=== PATIENT | female | born 1970 | race Caucasian/White ===

== ENCOUNTER 2023-12-27 14:12 | Observation (INO) ==
[2023-12-27 15:05] LABS: Basophils # (auto) 0.03 K/uL (0.00-0.20); Basophils % (auto) 0.3 %; Hematocrit (blood only) 41.6 % (37.0-47.0); Hemoglobin 13.7 g/dl (12.0-16.0); Immature Granulocytes # (auto) 0.04 K/uL (0.01-0.20); Immature Granulocytes % (auto) 0.4 %; Lymphocytes % (auto) 8.7 %; Mean Corpuscular Hemoglobin 29.7 pg (25.0-34.0); Mean Corpuscular Hgb Conc 32.9 g/dL (32.0-36.0); Mean Corpuscular Volume 90.2 fL (80.0-100.0); Mean Platelet Volume 9.6 fL (9.4-12.4); Monocytes # (auto) 0.16 K/uL (0.11-0.59); Monocytes % (auto) 1.5 %; Neutrophils # (auto) 9.21 K/uL (1.40-6.50); Neutrophils % (auto) 89.1 %; Platelet Count 345 K/uL (130-400); RDW Standard Deviation 46.3 fL (36.4-46.3); Red Blood Count 4.61 M/uL (4.20-5.40); White Blood Count 10.34 K/ul (4.8-10.8)
--- NOTE | 2023-12-27 15:42 | Emergency Department Note ---
History of Present Illness General Chief complaint: Hip Pain Stated complaint: PAIN, BULDGING DISK Time Seen by Provider: 12/27/23 15:40 History of Present Illness Maximum Pain Intensity: 10 NAME: MEHRDAD DAVIS AGE: 53 SEX: F : 1970 ARRIVES VIA: Walk-In INFORMANT: Patient ED PROVIDER(S): JEANNINE Leslie, Harry Clark DO The patient is a 53-year-old female who arrives to the emergency department for evaluation of left lumbar pain as well as lumbar spinous process pain. She reports she was here on Tuesday night, and diagnosed with a herniated disc with sciatica. She states the pain has worsened since discharge, and she currently has left leg numbness, and weakness. She reports she was prescribed Robaxin, prednisone and has been taking naproxen and Tylenol which none have alleviated the pain. The patient denies any numbness or tingling in her groin, loss of bowel or bladder. She is tearful upon examination. Home Medications Medication Instructions Recorded Confirmed Type naproxen 500 mg tablet 500 mg PO BID PRN pain #20 tabs 12/25/23 12/27/23 Rx duloxetine 60 mg capsule,delayed 60 mg PO DAILY 12/27/23 12/27/23 History release levothyroxine 75 mcg tablet 75 mcg PO DAILYBB 12/27/23 12/27/23 History methocarbamol 750 mg tablet 750 mg PO TID 12/27/23 12/27/23 History Past Med/Surg History Medical History Depression Hypothyroidism Social History Smoking Status: Never smoker Preferred Language: Italian Feels Safe at Home: Yes Physical Exam Vital Signs Vital Signs - 24 hr 12/27/23 14:14 12/27/23 16:32 12/27/23 17:41 Temperature 36.2 C L Temperature Source Temporal Artery Scan Pulse Rate 123 H 85 Pulse Rate [Apical] 84 Respiratory Rate 18 18 Respiratory Effort / Characteristics Non-Labored Spontaneous Non-Labored Spontaneous Respiratory Depth Normal Normal Respiratory Pattern Regular Blood Pressure 169/110 H Blood Pressure [Right Arm] 146/88 H Blood Pressure Mean 129 Blood Pressure Mean [Right Arm] 107 Blood Pressure Position Sitting Blood Pressure Position [Right Arm] Pulse Oximetry 95 96 Oxygen Delivery Method Room Air Room Air Sepsis Recent Fever Within 48 Hours No Sepsis New/Unexplained Change in Mental Status No Sepsis Action Taken by Nursing No Action Required 12/27/23 18:24 12/27/23 20:00 12/27/23 20:23 Temperature Temperature Source Pulse Rate 80 Pulse Rate [Apical] 82 86 Respiratory Rate 18 18 Respiratory Effort / Characteristics Non-Labored Spontaneous Non-Labored Spontaneous Respiratory Depth Normal Normal Respiratory Pattern Regular Regular Blood Pressure Blood Pressure [Right Arm] 147/93 H 141/91 H Blood Pressure Mean Blood Pressure Mean [Right Arm] 111 107 Blood Pressure Position Blood Pressure Position [Right Arm] Lying Lying Pulse Oximetry 94 96 Oxygen Delivery Method Room Air Room Air Sepsis Recent Fever Within 48 Hours Sepsis New/Unexplained Change in Mental Status Sepsis Action Taken by Nursing VITALS: Vitals are noted on the nurse's note and reviewed by myself. Vital signs stable. GENERAL: 53-year-old female, in no acute distress, nondiaphoretic, well- developed well-nourished. SKIN: The skin was without rashes, erythema, edema, or bruising. HEAD: Normocephalic atraumatic. HEART: Regular rate and rhythm without murmurs gallops or rubs. LUNGS: Clear to auscultation bilaterally without wheezes, rales or rhonchi. No retractions or accessory muscle use. MUSCULOSKELETAL: Tenderness to palpation lumbar spinous process, lumbar paraspinal muscles, left lower extremity strength 4/5, right lower extremity strength 5/5, positive left straight leg raise. Distal pulses present. NEURO: Patient was alert and oriented to person place and time. No focal neurological deficits. Course Administered Medications Miscellaneous (Remove Lidoderm Patch) 1 each N/A DAILY@2100 APRIL Stop: 01/26/24 20:59 Last Admin: 12/27/23 20:06 Dose: 1 each Documented By: RODRICK Discontinued Medications Acetaminophen (Acetaminophen 500 Mg Tab) 1,000 mg PO NOW STA Stop: 12/27/23 15:57 Last Admin: 12/27/23 16:10 Dose: 1,000 mg Documented By: MYRA Cyclobenzaprine HCl (Cyclobenzaprine Hcl 10 Mg Tab) 10 mg PO NOW STA Stop: 12/27/23 15:57 Last Admin: 12/27/23 16:10 Dose: 10 mg Documented By: MYRA Dexamethasone Sodium Phosphate (DexamethasonePf 10 Mg/Ml Vial) 10 mg IV NOW ONE Stop: 12/27/23 15:57 Last Admin: 12/27/23 16:10 Dose: 10 mg Documented By: MYRA Gadobutrol (Gadobutrol 65ml Vial) 8.3 ml IV ONCE ONE Stop: 12/27/23 17:58 Last Admin: 12/27/23 17:57 Dose: 8.3 ml Documented By: СВЕТЛАНА Ketorolac Tromethamine (Ketorolac Tromethamine 15 Mg/Ml Vial) 15 mg IV NOW ONE Stop: 12/27/23 15:57 Last Admin: 12/27/23 16:10 Dose: 15 mg Documented By: MYRA Lidocaine (Lidocaine 5% 1 Patch) 1 patch TD NOW STA Stop: 12/27/23 15:57 Last Admin: 12/27/23 16:11 Dose: 1 patch Documented By: MYRA Oxycodone HCl (Oxycodone Hcl Ir 5 Mg Tab (Immediate Release)) 5 mg PO NOW STA Stop: 12/27/23 16:56 Last Admin: 12/27/23 17:03 Dose: 5 mg Documented By: DARLIN Oxycodone HCl (Oxycodone Hcl Ir 5 Mg Tab (Immediate Release)) 5 mg PO NOW STA Stop: 12/27/23 19:28 Last Admin: 12/27/23 19:31 Dose: 5 mg Documented By: RODRICK Medical Decision Making Differential Diagnosis Musculoskeletal, disc herniation, fracture, metastatic disease, cord compression, discitis, sciatica, cauda equina, infection, aortic disease, renal colic, gastrointestinal, as well as other pathologies. Medical Records Attestation: I reviewed the patient's medical records. Home Medications Current Medication List: was personally reviewed by me Laboratory Data Attestation: I reviewed the patient's lab results. No leukocytosis, stable hemoglobin and hematocrit, no electrolyte abnormalities. 12/27/23 14:45 12/27/23 14:45 Lab Results 12/27/23 Range/Units 14:45 WBC 10.34 (4.8-10.8) K/ul RBC 4.61 (4.20-5.40) M/uL Hgb 13.7 (12.0-16.0) g/dl Hct 41.6 (37.0-47.0) % MCV 90.2 (80.0-100.0) fL MCH 29.7 (25.0-34.0) pg MCHC 32.9 (32.0-36.0) g/dL RDW Std Deviation 46.3 (36.4-46.3) fL RDW Coeff of Mark 14.0 (11.5-14.5) % Plt Count 345 (130-400) K/uL MPV 9.6 (9.4-12.4) fL Immature Gran % (Auto) 0.4 % Neut % (Auto) 89.1 % Lymph % (Auto) 8.7 % [place] % (Auto) 1.5 % Eos % (Auto) 0.0 % Baso % (Auto) 0.3 % Neut # (Auto) 9.21 H (1.40-6.50) K/uL Lymph # (Auto) 0.90 L (1.20-3.40) K/uL [place] # (Auto) 0.16 (0.11-0.59) K/uL Eos # (Auto) 0.00 (0.00-0.50) K/uL Baso # (Auto) 0.03 (0.00-0.20) K/uL Immature Gran # (Auto) 0.04 (0.01-0.20) K/uL Sodium 139 (136-145) mmol/L Potassium 3.5 D (3.5-5.1) mmol/L Chloride 104 (98-107) mmol/L Carbon Dioxide 27 (21-32) mmol/L Anion Gap 8 (3-11) BUN 17 (6-23) mg/dl Creatinine 0.80 (0.6-1.2) mg/dl Est Cr Clr Drug Dosing 90.0 ml/min Est GFR ( Amer) 96.2 ml/min Est GFR (Non-Af Amer) 83.0 ml/min BUN/Creatinine Ratio 21.3 H (10-20) Glucose 115 H (70-99(Fasting)) mg/dl Calcium 9.4 (8.6-10.3) mg/dl Magnesium 2.1 (1.7-2.4) mg/dl Total Bilirubin 0.5 (0.2-1.0) mg/dl AST 16 (13-39) U/L ALT 15 (7-52) U/L Alkaline Phosphatase 57 (34-104) U/L Total Protein 7.4 (6.0-8.3) gm/dl Albumin 4.4 (3.4-5.0) gm/dl Globulin 3.0 (2.5-4.0) gm/dl Albumin/Globulin Ratio 1.5 (0.9-2) Imaging Data Radiologist's Impression: Lumbar Spine MRI 12/27/23 15:49 LUMBAR SPINE MRI WITH AND WITHOUT CONTRAST HISTORY: numbness left lower extremity. Back pain. TECHNIQUE: Multiplanar multisequence MRI of the lumbar spine was performed both before and after the intravenous administration of contrast. COMPARISON: Lumbar spine CT 12/25/2023. FINDINGS: For the purpose of the report the L5-S1 disc space will be located on axial image . No fracture or subluxation within the lumbar spine. The visualized sacrum is intact. There is mild disc space narrowing at L2-L3, L4-5, L5-S1. Mild disc space narrowing also seen at T10-11 and T11-T12. There is 4 mm of anterolisthesis of L4 on L5, unchanged. The conus terminates at the L1 level. Lumbar subcutaneous edema is noted. Pbpn-pt-[id number] facet degenerative changes most pronounced at the L4-5 level. Small broad-based posterior disc bulge T11- T12 without significant central canal or neural foraminal narrowing. Paravertebral soft tissues are unremarkable. Minimal anterior wedging at T11 and is likely chronic. No epidural fluid collections or masses. L1-L2: No significant central canal or neural foraminal narrowing. L2-L3: Small broad-based posterior disc bulge without significant central canal narrowing. There is mild bilateral neural foraminal narrowing. L3-L4: No significant central canal or neural foraminal narrowing. L4-L5: No significant central canal or left-sided neural foraminal narrowing. There is moderate right-sided neural foraminal narrowing due to the spondylolisthesis and facet hypertrophy. L5-S1: There is a left foraminal focal disc protrusion measuring approximately 13 x 5 mm. This abuts the exiting left L5 nerve root. There is mild enhancement adjacent to this disc protrusion which is likely reactive. No significant central canal or right-sided neural foraminal narrowing. There is moderate left- sided neural foraminal narrowing due to the disc protrusion. IMPRESSION: 1. A 13 x 5 mm left foraminal focal disc protrusion at L5-S1 which abuts the exiting left L5 nerve root. 2. No fracture or subluxation within the lumbar spine. 3. Grade 1 anterolisthesis of L4 on L5. 4. [id number]-[id number] facet degenerative changes most pronounced at the L4-5 level. ACT 112: Negative or not required by law. Electronically signed by: Fercho Boogie M.D. 12/27/2023 7:21 PM ECG Data Attestation: I personally reviewed and interpreted this ECG as follows: Indication: + other Rate (beats per minute): 122 Rhythm: + sinus tachycardia ECG [place]: + Normal ECG ST segments: + Normal ST segments Comparison ECG Date: no prior available Blood Pressure Blood Pressure Findings: Elevated blood pressure Blood Pressure Disposition: elevated BP felt to be situational MDM Narrative The patient is a 53-year-old female who arrives to the emergency department for the above-stated complaint. Upon examination the patient is obviously uncomfortable. She was evaluated in triage 3 initially prior to being moved to room a 12 B. During assessment the patient had slight weakness of the left lower extremity 4/5 in comparison to right which was 5/5. Straight leg raise did elicit significant pain in the left posterior lumbar region. Based on the patient's new onset weakness, as well as numbness and tingling of the left lower extremity I did feel it necessary to order a lumbar MRI. The patient was also provided with an oral dose of oxycodone, IM Toradol, IM dexamethasone, oral Tylenol, and a topical Lidoderm patch for comfort. The patient did require repeat oxycodone administration to assist with pain relief. Upon reassessment I was able to provide the patient with the MRI results, the patient does have a 13 x 5 mm left foraminal focal disc protrusion at L5-S1 which abuts the exiting left L5 nerve root. This is consistent with the patient's symptoms and severe pain. I spoke with Dr. Almaguer from orthopedic spine who agreed the patient's pain should be under control until she is able to be evaluated outpatient. I informed him the patient is not local, and would require narcotics for pain control, however she needs to drive 11 hours to return home for follow-up. At that time he and I discussed the need for patient admission overnight for pain control with follow-up evaluation from him in the morning. He does recommend a transverse foraminal injection for pain control at this time. I spoke with the patient regarding these options, she was agreeable to being admitted at this time. Case management was contacted to facilitate admission. Dr. Joanne Aceves from the [facility] hospitalist group will take over care of the patient at this time. Impression & Plan Protrusion of intervertebral disc of lumbosacral region, Intractable back pain Discharge Plan Visit Data Chief Complaint: Hip Pain Stated Complaint: PAIN, BULDGING DISK ED Provider: Harry Clark ED Midlevel Provider: Riddhi Rubi Discharge Problem: Protrusion of intervertebral disc of lumbosacral region, Intractable back pain Forms Stand Alone Forms: My [facility] Prescriptions Prescriptions: No Action naproxen 500 mg tablet 500 mg PO BID PRN (Reason: pain) Qty: 20 0RF levothyroxine 75 mcg tablet 75 mcg PO DAILYBB methocarbamol 750 mg tablet 750 mg PO TID Rx Instructions: ordered 12/22/23 take for 7 days duloxetine 60 mg capsule,delayed release(DR/EC) 60 mg PO DAILY Referrals Referrals: PCP,NO [Primary Care Provider] -
[2023-12-27 15:44] LABS: Albumin Globulin Ratio 1.5 (0.9-2); Albumin Level 4.4 gm/dl (3.4-5.0); BUN Creatinine Ratio 21.3 (10-20); Bilirubin,Total 0.5 mg/dl (0.2-1.0); Calcium 9.4 mg/dl (8.6-10.3); Est GFR (African American) 96.2 ml/min; Potassium 3.5 mmol/L (3.5-5.1); Total Protein 7.4 gm/dl (6.0-8.3)
[2023-12-27] MEDS: ACETAMINOPHEN 500 MG TAB PO STA (16:10)
[2023-12-27] MEDS: dexAMETHasone**PF** 10 MG/ML VIAL IV ONE (16:10)
[2023-12-27] MEDS: KETOROLAC TROMETHAMINE 15 MG/ML VIAL IV ONE ×2 (16:10→23:58)
[2023-12-27] MEDS: CYCLOBENZAPRINE HCL 10 MG TAB PO STA (16:10)
[2023-12-27] MEDS: LIDOCAINE 5% 1 PATCH TD STA (16:11)
[2023-12-27] MEDS: oxyCODONE HCL IR 5 MG TAB (IMMEDIATE RELEASE) PO STA ×2 (17:03→19:31)
[2023-12-27] MEDS: GADOBUTROL 65ML VIAL IV ONE (17:57)
--- NOTE | 2023-12-27 19:22 | Magnetic Resonance Report ---
LUMBAR SPINE MRI WITH AND WITHOUT CONTRAST HISTORY: numbness left lower extremity. Back pain. TECHNIQUE: Multiplanar multisequence MRI of the lumbar spine was performed both before and after the intravenous administration of contrast. COMPARISON: Lumbar spine CT 12/25/2023. FINDINGS: For the purpose of the report the L5-S1 disc space will be located on axial image 24 of 25. No fracture or subluxation within the lumbar spine. The visualized sacrum is intact. There is mild di sc space narrowing at L2-L3, L4-5, L5-S1. Mild disc space narrowing also seen at T10-11 and T11-T12. There is 4 mm of anterolisthesis of L4 on L5, unchanged. The conus terminates at the L1 level. Lumbar subcutaneous edema is noted. Gswy-pk-smoedzfn facet degenerative changes most pronounced at the L4-5 level. Small broad-based posterior disc bulge T11-T12 without significant central canal or neural fo raminal narrowing. Paravertebral soft tissues are unremarkable. Minimal anterior wedging at T11 and i s likely chronic. No epidural fluid collections or masses. L1-L2: No significant central canal or neural foraminal narrowing. L2-L3: Small broad-based posterior disc bulge without significant central canal narrowing. There is m ild bilateral neural foraminal narrowing. L3-L4: No significant central canal or neural foraminal narrowing. L4-L5: No significant central canal or left-sided neural foraminal narrowing. There is moderate right -sided neural foraminal narrowing due to the spondylolisthesis and facet hypertrophy. L5-S1: There is a left foraminal focal disc protrusion measuring approximately 13 x 5 mm. This abuts the exiting left L5 nerve root. There is mild enhancement adjacent to this disc protrusion which is l ikely reactive. No significant central canal or right-sided neural foraminal narrowing. There is mode rate left-sided neural foraminal narrowing due to the disc protrusion. IMPRESSION: 1. A 13 x 5 mm left foraminal focal disc protrusion at L5-S1 which abuts the exiting left L5 nerve ro ot. 2. No fracture or subluxation within the lumbar spine. 3. Grade 1 anterolisthesis of L4 on L5. 4. Hihb-[id number]-mltpgbun facet degenerative changes most pronounced at the L4-5 level. ACT 112: Negative or not required by law. Electronically signed by: Fercho Boogie M.D. 12/27/2023 7:21 PM
--- NOTE | 2023-12-27 20:20 | History & Physical Report ---
Date of Service December 27, 2023 Assessment & Plan (1) Lumbar radiculopathy: Plan: Worsening, intractable LBP with pain radiation down her left leg x 2 weeks Patient reports she was helping a friend move/lift boxes when she exacerbated her back pain Lumbar spine MRI on arrival revealed a 13 x 5 mm left foraminal focal disc protrusion at L5-S1; no fracture or subluxation ED reach out to Dr. Almaguer, who reported that the patient will likely need a back injection Given the patient is not local and would need to drive 11 hours to return home, she was amenable to being admitted for pain control Multimodal pain regimen as follows: Acetaminophen as needed for pain 13 Oxycodone 5-10 mg p.o. q6h as needed for breakthrough pain Prednisone 40 mg p.o. QAM Methocarbamol 750 mg p.o. TID Lidocaine 5% patch application/removal to the lower back daily Ice application to lower back (patient reports this has been helping a lot) Reclined position/limit movement Orthospine surgery consulted Hold off on PT/OT consult pending orthospine eval A.m. CBC, BMP (2) Constipation: Plan: Secondary to opioid use MiraLAX as needed (3) Hypothyroidism: Plan: Continue levothyroxine (4) Depression: Plan: Continue duloxetine Plan Disposition: Admit to [facility] Full code Regular diet VTE PPx: Lovenox 40 mg SQ q24h History of Present Illness Chief Complaint: Left lower back/hip pain Primary Care Provider: NO PCP Marilee is a pleasant 53-year-old female with PMH of hypothyroidism, depression, and lumbar radiculopathy. Patient presented for worsening, intractable left hip pain radiating down the left leg that began after she was lifting boxes and helping a friend move on December 16. Pain is located at the left lower back/sacrum and radiates down her left leg. She rates it 8/10 after receiving pain medication in the ED. worse with movements. She was seen at the ED on 12/24, and was previously discharged on methocarbamol 750 mg 3 times daily as well as naproxen/Tylenol rotation. She reports that this did not alleviate her pain, and that her pain has been constant since. She does note that ice pads do help with the pain, as well as lying in a reclined position. Last BM on 12/26 at 1330. No saddle anesthesia or change in bowel/urinary habits. Patient reports she has been slightly constipated from pain medication. Prior injuries to the back include a recent fall around a month ago while wearing flip-flops; tripped. She also notes she had a deep tissue massage of the lower back around Margarita time and is unsure if this contributed. Patient lives in [place], [place], but is currently in the area caring for her 87-year-old mother with CHF. She reports she has not been taking her regular medications, which include duloxetine and levothyroxine. Patient is mildly hypertensive at 141/91 at time of admission; vitals otherwise stable. ED course: Lidocaine 5% patch Acetaminophen 1000 mg IV Cyclobenzaprine 10 mg Toradol 15mg Dexamethasone 10 mg Oxycodone 5 mg p.o. x 2 ROS: Patient endorses left lower back pain radiating fully down the left leg, numbness and tingling in the left leg, and constipation. Patient denies fever, chills, night sweats, dizziness or lightheadedness, headaches, chest pain, SOB, abdominal pain, N/V/D, change in bowel habits, blood in her urine or stool, burning with urination, or saddle anesthesia. Allergies Allergy/AdvReac Type Severity Reaction Status Date / Time adhesive tape Allergy Redness of Verified 12/27/23 23:24 Skin Home Medications Medication Instructions Recorded Confirmed Type naproxen 500 mg tablet 500 mg PO BID PRN pain #20 tabs 12/25/23 12/27/23 Rx duloxetine 60 mg capsule,delayed 60 mg PO DAILY 12/27/23 12/27/23 History release levothyroxine 75 mcg tablet 75 mcg PO DAILYBB 12/27/23 12/27/23 History methocarbamol 750 mg tablet 750 mg PO TID 12/27/23 12/27/23 History lidocaine 5 % topical patch 1 patch transdermal QAM #10 ea 12/29/23 Rx oxycodone 5 mg capsule 5 mg PO DAILY PRN pain #20 caps 12/29/23 Rx oxycodone 5 mg tablet 5 mg PO Q6H PRN pain 5 days #20 12/29/23 Rx tabs prednisone 20 mg tablet 40 mg (2 x 20 mg) PO QAM #10 tabs 12/29/23 Rx Past Med/Surg History Medical History Depression Hypothyroidism Social History Smoking Status: Never smoker Hx Alcohol Use: Yes Alcohol type: wine Hx Substance Use: No Preferred Language: Mohawk Communication Ability: Effective Personal Injury Paralegal Required: No Beliefs That Will Affect Care: None Current Living Situation: Alone Feels Safe at Home: Yes Assistive Devices: Glasses Review of Systems Review of Systems: See HPI above Physical Exam Physical Exam: General: Moderate physical distress secondary to LBP; pleasant affect; non-toxic appearing; cooperative HEENT: normocephalic, atraumatic; no scleral icterus; PERRLA; moist mucus membrane; vision and hearing grossly intact Neck: supple; no lymphadenopathy; trachea midline Skin: warm, dry without signs of tenting; no cyanosis; no rashes, bruising, lesions, or erythema noted CV: chest wall NTP; RRR; S1/S2 normal; no murmurs/rubs/gallops; pulses intact and symmetric at radial, DP, and PT Lungs: no acute respiratory distress; symmetrical chest wall expansion; clear breath sounds across all lung key w/o adventitious sounds; no wheezing ABD: Soft, NTP; BS present; no rebound/guarding Back: No signs of bruising, rashes or active bleeding on the back; left lower back TTP; right lower back NTP; upper spine NTP; + straight leg lift of the left leg MSK: no tics or fasciculations; no edema noted in the LEs b/l, nonerythematous; patient demonstrates ability to wiggle toes Neuro: A&Ox3; normal mood and affect; fluent speech; no focal deficits; sensation grossly intact in the LEs b/l assessed via light touch at the toes Results & Data Results & Data Vital Signs (Past 12 Hours) Vital Signs Temp Pulse Pulse Resp BP BP Pulse Ox 12/27/23 20:00 86 18 141/91 H 96 12/27/23 18:24 82 18 147/93 H 94 12/27/23 17:41 85 12/27/23 16:32 84 18 146/88 H 96 12/27/23 14:14 36.2 C L 123 H 18 169/110 H 95 O2 Del Method 12/27/23 20:00 Room Air 12/27/23 18:24 Room Air 12/27/23 17:41 12/27/23 16:32 Room Air 12/27/23 14:14 Room Air Laboratory Results Abnormal lab results 12/27/23 Range/Units 14:45 Neut # (Auto) 9.21 H (1.40-6.50) K/uL Lymph # (Auto) 0.90 L (1.20-3.40) K/uL BUN/Creatinine Ratio 21.3 H (10-20) Glucose 115 H (70-99(Fasting)) mg/dl Diagnostic Findings Lumbar Spine MRI 12/27/23 15:49 LUMBAR SPINE MRI WITH AND WITHOUT CONTRAST HISTORY: numbness left lower extremity. Back pain. TECHNIQUE: Multiplanar multisequence MRI of the lumbar spine was performed both before and after the intravenous administration of contrast. COMPARISON: Lumbar spine CT 12/25/2023. FINDINGS: For the purpose of the report the L5-S1 disc space will be located on axial image of . No fracture or subluxation within the lumbar spine. The visualized sacrum is intact. There is mild disc space narrowing at L2-L3, L4-5, L5-S1. Mild disc space narrowing also seen at T10-11 and T11-T12. There is 4 mm of anterolisthesis of L4 on L5, unchanged. The conus terminates at the L1 level. Lumbar subcutaneous edema is noted. Ytxa-oe-ngjqlrgk facet degenerative changes most pronounced at the L4-5 level. Small broad-based posterior disc bulge T11- T12 without significant central canal or neural foraminal narrowing. Paravertebral soft tissues are unremarkable. Minimal anterior wedging at T11 and is likely chronic. No epidural fluid collections or masses. L1-L2: No significant central canal or neural foraminal narrowing. L2-L3: Small broad-based posterior disc bulge without significant central canal narrowing. There is mild bilateral neural foraminal narrowing. L3-L4: No significant central canal or neural foraminal narrowing. L4-L5: No significant central canal or left-sided neural foraminal narrowing. There is moderate right-sided neural foraminal narrowing due to the spondylolisthesis and facet hypertrophy. L5-S1: There is a left foraminal focal disc protrusion measuring approximately 13 x 5 mm. This abuts the exiting left L5 nerve root. There is mild enhancement adjacent to this disc protrusion which is likely reactive. No significant central canal or right-sided neural foraminal narrowing. There is moderate left- sided neural foraminal narrowing due to the disc protrusion. IMPRESSION: 1. A 13 x 5 mm left foraminal focal disc protrusion at L5-S1 which abuts the exiting left L5 nerve root. 2. No fracture or subluxation within the lumbar spine. 3. Grade 1 anterolisthesis of L4 on L5. 4. Astx-ah-vmgjqfzb facet degenerative changes most pronounced at the L4-5 level. ACT 112: Negative or not required by law. Electronically signed by: Fercho Boogie M.D. 12/27/2023 7:21 PM Code Status & VTE Plan Code Status Full code VTE Prophylaxis Plan VTE Prophylaxis will be ordered: Yes Supervising Physician Co-Signing Physician Notes Patient seen and examined, chart reviewed, case discussed with TYESHA Partida and I agree with the assessment and plan as above PG Care Time/CCT Total # of Minutes Spent Total Time Spent with Patient: Total time spent is greater than 50% in coordination of care (as documented) at patient's floor/unit and/or counseling patient: [place] [address] INT INP/OBS CARE 1/40MIN Patient Type New Medical Decision Making Low Complexity Diagnoses Lumbar radiculopathy M54.16 Constipation K59.00 Hypothyroidism E03.9 Depression F32.A
[2023-12-27 20:44] LABS: Magnesium 2.1 mg/dl (1.7-2.4)
[2023-12-27] MEDS: MoRPHine SULFATE 4 MG/ML 1 ML CARP\\VIAL IV STA (21:58)
[2023-12-27] MEDS ORDERED: oxyCODONE HCL IR 5 MG TAB (IMMEDIATE RELEASE) PO PRN ×2 (22:41)
[2023-12-27] MEDS ORDERED: ACETAMINOPHEN 325 MG TAB PO PRN (22:41)
[2023-12-27] MEDS ORDERED: NALOXONE HCL 0.4 MG/1 ML VIAL/CARP IV PRN (23:23)
[2023-12-27] MEDS: POLYETHYLENE (MIRALAX) 17 GM PACK PO PRN (23:57)
[2023-12-27] MEDS: HYDROmorphone INJ 0.5 MG/0.5 ML SYR IV PRN (23:58)
[2023-12-28] MEDS: Patient's ALLERGY Info needs ENTERED STA (00:03)
[2023-12-28] MEDS: METHOCARBAMOL 750 MG TABLET PO SCH (00:03)
[2023-12-28] MEDS: ENOXAPARIN INJ 40 MG/0.4 ML SYR SQ SCH (00:03)
[2023-12-28] MEDS: MELATONIN 3 MG TAB PO PRN (01:40)
[2023-12-28] MEDS: oxyCODONE HCL IR 5 MG TAB (IMMEDIATE RELEASE) PO PRN (01:40)
[2023-12-28] MEDS: ACETAMINOPHEN 500 MG TAB PO SCH (03:13)
[2023-12-28] MEDS: LEVOTHYROXINE SODIUM 75 MCG TABLET PO SCH (06:01)
[2023-12-28 06:02] LABS: Basophils # (auto) 0.08 K/uL (0.00-0.20); Basophils % (auto) 0.7 %; Hematocrit (blood only) 36.2 % (37.0-47.0); Hemoglobin 11.6 g/dl (12.0-16.0); Immature Granulocytes # (auto) 0.05 K/uL (0.01-0.20); Immature Granulocytes % (auto) 0.5 %; Lymphocytes # (auto) 1.89 K/uL (1.20-3.40); Lymphocytes % (auto) 17.6 %; Mean Corpuscular Hemoglobin 29.4 pg (25.0-34.0); Mean Corpuscular Volume 91.9 fL (80.0-100.0); Mean Platelet Volume 9.8 fL (9.4-12.4); Monocytes # (auto) 0.73 K/uL (0.11-0.59); Monocytes % (auto) 6.8 %; Neutrophils # (auto) 8.01 K/uL (1.40-6.50); Neutrophils % (auto) 74.4 %; Platelet Count 290 K/uL (130-400); RDW Coefficient of Variation 13.8 % (11.5-14.5); RDW Standard Deviation 46.9 fL (36.4-46.3); Red Blood Count 3.94 M/uL (4.20-5.40); White Blood Count 10.76 K/ul (4.8-10.8)
[2023-12-28] MEDS: ONDANSETRON INJ 2 MG/ML 2 ML VIAL IV STA (06:04)
--- NOTE | 2023-12-28 06:14 | Electrocardiogram Report ---
Test Reason : Blood Pressure : / mmHG Vent. Rate : 122 BPM Atrial Rate : 122 BPM P-R Int : 128 ms QRS Dur : 074 ms QT Int : 320 ms P-R-T Axes : 051 040 011 degrees QTc Int : 456 ms Sinus tachycardia Nonspecific T wave abnormality No previous ECGs available Confirmed by Brad Moe ([id number]) on 12/28/2023 6:13:53 AM Referred By: Confirmed By:Brad Moe
[2023-12-28 06:18] LABS: BUN Creatinine Ratio 31.7 (10-20); Calcium 8.6 mg/dl (8.6-10.3); Creatinine Clr Calc Pharmacy 111.6 ml/min; Potassium 3.7 mmol/L (3.5-5.1)
[2023-12-28] MEDS: DULoxetine HCL 60 MG CAP PO SCH (08:06)
[2023-12-28] MEDS: predniSONE 20 MG TAB PO SCH (08:07)
[2023-12-28] MEDS: LIDOCAINE 5% 1 PATCH TD SCH (08:09)
[2023-12-28 09:06] LABS: Thyroid Stimulating Hormone 0.312 uIu/ml (0.300-4.500)
--- NOTE | 2023-12-28 09:56 | Orthopedic Consultation ---
Date of Service December 28, 2023 Assessment & Plan (1) Protrusion of intervertebral disc of lumbosacral region: Patient presentation and plan was discussed with Dr. Almaguer. I had a long discussion today with the patient about her lumbar spine pathology with ample amount of time for her to ask any questions or state any concerns. All question concerns were discussed to the patient's satisfaction. At this point, we can treat her disc herniation conservatively. Would recommend physical therapy evaluation for her and oral analgesics for pain. Oral steroid and/or muscle relaxer could be added at does not interfere with any pre-existing medical conditions. I did discuss the role of pain management on possible epidural injection. I did discuss that more likely they will not provide an injection while she is inpatient and would likely have to follow-up in their outpatient clinic. She would prefer a consult to be placed just to discuss the possibility of injection due to her not being local to the [facility]. I did place a formal consult for pain management. She is from [place] so it is recommended that she follows up with a spine surgeon whenever she is back home. If she maintains the [facility], she may follow-up with Dr. Almaguer for post discharge management. Please reach out by [facility] or to [facility] orthopedics if this patient's situation is to change. Pt seen and examined, as noted above. Recommend pain control and mobilization. Recommended evaluation in [place] when she returns and pain management consult. History of Present Illness Reason for Consultation: . Back pain with radiculopathy Requesting Physician: . Attending Physician: Joanne Aceves DO Marilee is a 53-year-old female who presented to the emergency department yesterday evening due to worsening intractable lower back pain radiating down to the left leg. She notes that she has a history of falls which gave her a low- grade amount of chronic pain to the lower back. She notes that on December 16, she was helping a friend move and doing a lot of twisting which aggravated her lower back pain from her usual 2 out of 10 to about an 8 out of 10. She states that she gave it some time to work itself out but was having continued worsening of pain to the lower back radiating to the left leg in which she arrived urgently at the emergency department on 12/24. She was given pain medication at that time which alleviated a little bit of pain. She was seen again in the emergency department yesterday evening and was given pain control as well as an MRI. The MRI showed a left foraminal focal disc protrusion at L5-S1. Orthopedics was then consulted. Today, she notes that her pain is well-controlled with the local lidocaine patch and oral analgesics. She notes that whenever she is laying still she is feeling pretty good but anytime that she tries to twist the lower back or lift her left leg, this elicits slight discomfort. She denies any paresthesias, saddle anesthesia, or bowel/bladder dysfunction. She is not on any blood thinners. Allergies Allergy/AdvReac Type Severity Reaction Status Date / Time adhesive tape Allergy Redness of Verified 12/27/23 23:24 Skin Home Medications Medication Instructions Recorded Confirmed Type naproxen 500 mg tablet 500 mg PO BID PRN pain #20 tabs 12/25/23 12/27/23 Rx duloxetine 60 mg capsule,delayed 60 mg PO DAILY 12/27/23 12/27/23 History release levothyroxine 75 mcg tablet 75 mcg PO DAILYBB 12/27/23 12/27/23 History methocarbamol 750 mg tablet 750 mg PO TID 12/27/23 12/27/23 History Past Med/Surg History Medical History Depression Hypothyroidism Social History Smoking Status: Never smoker Hx Alcohol Use: Yes Alcohol type: wine Hx Substance Use: No Preferred Language: Divehi Communication Ability: Effective Otolaryngology Rep Required: No Beliefs That Will Affect Care: None Current Living Situation: Alone Other Information That Helps Us Care for You: No Feels Safe at Home: Yes Safety Concerns: Feels Safe At This Time Assistive Devices: Glasses Review of Systems All systems reviewed & are unremarkable except as noted in HPI & below. Physical Exam . General: NAD; pleasant affect; non-toxic appearing; cooperative HEENT: normocephalic, atraumatic; no scleral icterus; PERRLA; moist mucus membrane; vision and hearing grossly intact Neck: supple; no lymphadenopathy; trachea midline Skin: warm, dry without signs of tenting; no cyanosis; no rashes, bruising, lesions, or erythema noted CV: chest wall NTP; RRR; S1/S2 normal; no murmurs/rubs/gallops; pulses intact and symmetric at radial, DP, and PT Lungs: no acute respiratory distress; symmetrical chest wall expansion; clear breath sounds across all lung key w/o adventitious sounds; no wheezing ABD: Soft, NTP; BS present; no rebound/guarding Neuro: A&Ox3; normal mood and affect; fluent speech; no focal deficits; sensation grossly intact in the LEs b/l assessed via light touch at the toes Musculoskeletal On physical examination of the lower back there is no signs of erythema, ecchymosis, edema, or other obvious deformities. Tenderness to palpation around the L5 region more predominantly towards the left side. Mild discomfort when twisting from left to right. Able to flex and extend without much difficulty. Positive straight leg raise the left leg. No active discomfort at the left hip with range of motion or weakness. Does elicit discomfort during range of motion to the lumbar spine. Negative logroll. Motor and sensation grossly intact distally the left lower extremity. +2 DP and PT pulses. Less than 2-second capillary refill. Normal sensation. Neurovascular intact. As noted above, 4+ left EHL weakness when compared to right EHL. Results & Data Results & Data Laboratory Results . Diagnostic Findings . Lumbar Spine MRI 12/27/23 15:49 LUMBAR SPINE MRI WITH AND WITHOUT CONTRAST HISTORY: numbness left lower extremity. Back pain. TECHNIQUE: Multiplanar multisequence MRI of the lumbar spine was performed both before and after the intravenous administration of contrast. COMPARISON: Lumbar spine CT 12/25/2023. FINDINGS: For the purpose of the report the L5-S1 disc space will be located on axial image 24 of 25. No fracture or subluxation within the lumbar spine. The visualized sacrum is intact. There is mild disc space narrowing at L2-L3, L4-5, L5-S1. Mild disc space narrowing also seen at T10-11 and T11-T12. There is 4 mm of anterolisthesis of L4 on L5, unchanged. The conus terminates at the L1 level. Lumbar subcutaneous edema is noted. Rqvs-kz-ekrcvxld facet degenerative changes most pronounced at the L4-5 level. Small broad-based posterior disc bulge T11- T12 without significant central canal or neural foraminal narrowing. Paravertebral soft tissues are unremarkable. Minimal anterior wedging at T11 and is likely chronic. No epidural fluid collections or masses. L1-L2: No significant central canal or neural foraminal narrowing. L2-L3: Small broad-based posterior disc bulge without significant central canal narrowing. There is mild bilateral neural foraminal narrowing. L3-L4: No significant central canal or neural foraminal narrowing. L4-L5: No significant central canal or left-sided neural foraminal narrowing. There is moderate right-sided neural foraminal narrowing due to the spondylolisthesis and facet hypertrophy. L5-S1: There is a left foraminal focal disc protrusion measuring approximately 13 x 5 mm. This abuts the exiting left L5 nerve root. There is mild enhancement adjacent to this disc protrusion which is likely reactive. No significant central canal or right-sided neural foraminal narrowing. There is moderate left- sided neural foraminal narrowing due to the disc protrusion. IMPRESSION: 1. A 13 x 5 mm left foraminal focal disc protrusion at L5-S1 which abuts the exiting left L5 nerve root. 2. No fracture or subluxation within the lumbar spine. 3. Grade 1 anterolisthesis of L4 on L5. 4. Uqsl-co-vgonkifo facet degenerative changes most pronounced at the L4-5 level. ACT 112: Negative or not required by law. Electronically signed by: Fercho Boogie M.D. 12/27/2023 7:21 PM PG Care Time/CCT Total # of Minutes Spent Total Time Spent with Patient: Total time spent is greater than 50% in coordination of care (as documented) at patient's floor/unit and/or counseling patient: Coding Level of Care Code 65498 IN/OBS CONSULT LVL 3,45M Diagnoses Protrusion of intervertebral disc of lumbosacral region M51.27
--- NOTE | 2023-12-28 12:31 | Pain Management Consultation ---
Date of Consultation December 28, 2023 Assessment & Plan (1) Protrusion of intervertebral disc of lumbosacral region: (2) Intractable back pain: (3) Lumbar radiculopathy: Plan We have discussed pursuing a left L5-S1 transforaminal epidural steroid injection on an outpatient basis. Patient does feel comfortable to be discharged from the hospital tomorrow morning, come to the office by 9 AM for new patient documentation and will be scheduled for the procedure at 9:45 AM. I did review preprocedural instructions with the patient and she is understanding. Nighttime Lovenox tonight was held. She is aware not to take any NSAIDs for 24 hours prior to the injection. She does plan to stay with her sister locally for few days prior to returning back to [place]. She is planning to seeing her PCP and have referral sent locally to a pain management clinic as well as a spine surgeon. Patient is in agreement with this plan. History of Present Illness Reason for Consultation: Intractable back pain Attending Physician: Melba Patino MD History of Present Illness This is a 53-year-old female that has been seen in the [facility] for intractable back pain. She states that 11 days ago she was helping a friend move out of her house and was lifting some heavy boxes. Since that time she has had pain in the left low back that radiates down the left leg in an L5 distribution to the foot. She describes a burning, stinging, numbness sensation. The pain is aggravated with standing or walking. She feels like the left leg is weaker than the right. The pain has been worsening to where she did seek treatment at an urgent care and was placed on a prednisone taper as well as Robaxin. She was not reporting any significant improvement so she was then seen on 12/25/[address] scan was performed of the lumbar spine which showed an L4-L5 spondylolisthesis, mild degenerative disc changes, and mild disc bulging at L2-L3, L3-L4, L4-L5. She was given morphine IV in the emergency department and then discharged home with naproxen 500 mg twice daily which did not provide any significant relief. On 12/27/2023 she returned back to the emergency department and she was provided with cyclobenzaprine, dexamethasone, Toradol, lidocaine patch, oxycodone, and received a lumbar spine MRI showing a left-sided foraminal disc protrusion abutting the exiting left L5 nerve root. She has spoken with [facility] orthopedics and surgery could be considered but conservative measures including a lumbar epidural steroid injection should be considered first. Patient is in town locally to visit her mother. She does live in [place] and would prefer further treatment be done closer to home should she need surgical intervention or repeat epidural injections. No bowel/bladder incontinence, saddle anesthesia, foot drop, falls. Case discussed with Dr. Ingrid Patterson Allergies Allergy/AdvReac Type Severity Reaction Status Date / Time adhesive tape Allergy Redness of Verified 12/27/23 23:24 Skin Home Medications Medication Instructions Recorded Confirmed Type naproxen 500 mg tablet 500 mg PO BID PRN pain #20 tabs 12/25/23 12/27/23 Rx duloxetine 60 mg capsule,delayed 60 mg PO DAILY 12/27/23 12/27/23 History release levothyroxine 75 mcg tablet 75 mcg PO DAILYBB 12/27/23 12/27/23 History methocarbamol 750 mg tablet 750 mg PO TID 12/27/23 12/27/23 History Patient History Medical History Depression Hypothyroidism Social History Smoking Status: Never smoker Hx Alcohol Use: Yes Alcohol type: wine Hx Substance Use: No Preferred Language: Persian Communication Ability: Effective Track Superintendent Required: No Beliefs That Will Affect Care: None Current Living Situation: Alone Feels Safe at Home: Yes Assistive Devices: Glasses Physical Exam Physical Exam: GENERAL: This is a pleasant 53-year-old female that does not appear in any acute distress. HEAD/FACE: Normocephalic and atraumatic. EYES: No drainage or conjunctival injection. ENT: Nose without bleeding or discharge. Oral mucosa moist. NECK: Full ROM without apparent pain. No swelling or masses noted. RESPIRATORY: Patient with unlabored breathing. No signs of respiratory distress. CHEST/AXILLA: Chest movement symmetrical. No deformities noted. ABDOMEN/GI: No distension BACK: Normal range of motion in all planes. There is focal exquisite tenderness along the left lumbosacral junction. No myofascial spasm or trigger points noted. SKIN: [place], warm and dry. No rash noted. MS/EXTREMITY: Positive straight leg raise on the left, negative on the right. 5/5 strength of the bilateral lower extremities. NEURO: Alert and appears oriented. Speech is fluent. Cranial Nerves are grossly intact. PSYCH: Alert, pleasant, affect is calm Results (Pain Clinic) Diagnostic Review MRI Findings: LUMBAR SPINE MRI WITH AND WITHOUT CONTRAST HISTORY: numbness left lower extremity. Back pain. TECHNIQUE: Multiplanar multisequence MRI of the lumbar spine was performed both before and after the intravenous administration of contrast. COMPARISON: Lumbar spine CT 12/25/2023. FINDINGS: For the purpose of the report the L5-S1 disc space will be located on axial image 24 of 25. No fracture or subluxation within the lumbar spine. The visualized sacrum is intact. There is mild disc space narrowing at L2-L3, L4-5, L5-S1. Mild disc space narrowing also seen at T10-11 and T11-T12. There is 4 mm of anterolisthesis of L4 on L5, unchanged. The conus terminates at the L1 level. Lumbar subcutaneous edema is noted. Vzfh-dx-akdfjepy facet degenerative changes most pronounced at the L4-5 level. Small broad-based posterior disc bulge T11- T12 without significant central canal or neural foraminal narrowing. Paravertebral soft tissues are unremarkable. Minimal anterior wedging at T11 and is likely chronic. No epidural fluid collections or masses. L1-L2: No significant central canal or neural foraminal narrowing. L2-L3: Small broad-based posterior disc bulge without significant central canal narrowing. There is mild bilateral neural foraminal narrowing. L3-L4: No significant central canal or neural foraminal narrowing. L4-L5: No significant central canal or left-sided neural foraminal narrowing. There is moderate right-sided neural foraminal narrowing due to the spondylolisthesis and facet hypertrophy. L5-S1: There is a left foraminal focal disc protrusion measuring approximately 13 x 5 mm. This abuts the exiting left L5 nerve root. There is mild enhancement adjacent to this disc protrusion which is likely reactive. No significant central canal or right-sided neural foraminal narrowing. There is moderate left- sided neural foraminal narrowing due to the disc protrusion. IMPRESSION: 1. A 13 x 5 mm left foraminal focal disc protrusion at L5-S1 which abuts the exiting left L5 nerve root. 2. No fracture or subluxation within the lumbar spine. 3. Grade 1 anterolisthesis of L4 on L5. 4. Bshv-xr-cqaizfst facet degenerative changes most pronounced at the L4-5 level. ACT 112: Negative or not required by law. Electronically signed by: Fercho Boogie M.D. 12/27/2023 7:21 PM
[2023-12-28] MEDS: ONDANSETRON INJ 2 MG/ML 2 ML VIAL IV PRN (13:08)
--- NOTE | 2023-12-28 16:16 | Hospitalist Progress Note ---
Date of Service December 28, 2023 Assessment & Plan (1) Lumbar radiculopathy: Plan: Worsening, intractable LBP with pain radiation down her left leg x 2 weeks Patient reports she was helping a friend move/lift boxes when she exacerbated her back pain Lumbar spine MRI on arrival revealed a 13 x 5 mm left foraminal focal disc protrusion at L5-S1; no fracture or subluxation ED reach out to Dr. Almaguer, who reported that the patient will likely need a back injection Given the patient is not local and would need to drive 11 hours to return home, she was amenable to being admitted for pain control Multimodal pain regimen as follows: Acetaminophen as needed for pain 13 Oxycodone 5-10 mg p.o. q6h as needed for breakthrough pain Prednisone 40 mg p.o. QAM Methocarbamol 750 mg p.o. TID Lidocaine 5% patch application/removal to the lower back daily Ice application to lower back (patient reports this has been helping a lot) Reclined position/limit movement Orthospine surgery consulted, pain management consulted epidural injection tomorrow , after discharge (2) Constipation: Plan: Secondary to opioid use MiraLAX as needed (3) Hypothyroidism: Plan: Continue levothyroxine (4) Depression: Plan: Continue duloxetine Plan Disposition: Admit to [facility] Full code Regular diet VTE PPx: Lovenox 40 mg SQ q24h Admission and Anticipated Discharge Date Admission Date: December 27, 2023 Subjective reports back pain improvement Review of Systems Review of Systems: All systems reviewed & are unremarkable except as noted in Subjective Physical Exam Physical Exam: General: Moderate physical distress secondary to LBP; pleasant affect; non-toxic appearing; cooperative HEENT: normocephalic, atraumatic; no scleral icterus; PERRLA; moist mucus membrane; vision and hearing grossly intact Neck: supple; no lymphadenopathy; trachea midline Skin: warm, dry without signs of tenting; no cyanosis; no rashes, bruising, lesions, or erythema noted CV: chest wall NTP; RRR; S1/S2 normal; no murmurs/rubs/gallops; pulses intact and symmetric at radial, DP, and PT Lungs: no acute respiratory distress; symmetrical chest wall expansion; clear breath sounds across all lung key w/o adventitious sounds; no wheezing ABD: Soft, NTP; BS present; no rebound/guarding Back: No signs of bruising, rashes or active bleeding on the back Neuro: A&Ox3; normal mood and affect; Results & Data Results & Data Vital Signs (Past 12 Hours) Vital Signs Temp Pulse Resp BP Pulse Ox O2 Del Method 12/28/23 15:47 36.9 C 81 16 139/82 96 Room Air 12/28/23 07:53 36.7 C 78 16 129/83 99 Room Air PG Care Time/CCT Total # of Minutes Spent Total Time Spent with Patient: Total time spent is greater than 50% in coordination of care (as documented) at patient's floor/unit and/or counseling patient: Coding Level of Care Code 05990 SUB INP/OBS CARE 2/35MIN Diagnoses Lumbar radiculopathy M54.16 Constipation K59.00 Hypothyroidism E03.9 Depression F32.A
[2023-12-28] MEDS: PROCHLORPERAZINE 10 MG in SYRINGE 8 ML IV PRN (18:45)
[2023-12-29 07:15] LABS: Basophils # (auto) 0.09 K/uL (0.00-0.20); Basophils % (auto) 1.1 %; Hematocrit (blood only) 36.6 % (37.0-47.0); Hemoglobin 11.6 g/dl (12.0-16.0); Immature Granulocytes # (auto) 0.04 K/uL (0.01-0.20); Immature Granulocytes % (auto) 0.5 %; Lymphocytes # (auto) 2.48 K/uL (1.20-3.40); Lymphocytes % (auto) 30.8 %; Mean Corpuscular Hemoglobin 29.7 pg (25.0-34.0); Mean Corpuscular Hgb Conc 31.7 g/dL (32.0-36.0); Mean Corpuscular Volume 93.8 fL (80.0-100.0); Mean Platelet Volume 9.9 fL (9.4-12.4); Monocytes # (auto) 0.73 K/uL (0.11-0.59); Monocytes % (auto) 9.1 %; Neutrophils # (auto) 4.72 K/uL (1.40-6.50); Neutrophils % (auto) 58.5 %; Platelet Count 273 K/uL (130-400); RDW Coefficient of Variation 14.2 % (11.5-14.5); RDW Standard Deviation 48.3 fL (36.4-46.3); White Blood Count 8.06 K/ul (4.8-10.8)
[2023-12-29 07:36] LABS: BUN Creatinine Ratio 21.3 (10-20); Calcium 8.9 mg/dl (8.6-10.3); Creatinine Clr Calc Pharmacy 87.9 ml/min; Est GFR (African American) 96.2 ml/min; Potassium 4.5 mmol/L (3.5-5.1)
--- NOTE | 2023-12-29 18:19 | Hospitalist Progress Note ---
Date of Service December 29, 2023 Assessment & Plan (1) Lumbar radiculopathy: Plan: Worsening, intractable LBP with pain radiation down her left leg x 2 weeks Patient reports she was helping a friend move/lift boxes when she exacerbated her back pain Lumbar spine MRI on arrival revealed a 13 x 5 mm left foraminal focal disc protrusion at L5-S1; no fracture or subluxation ED reach out to Dr. Almaguer, who reported that the patient will likely need a back injection Given the patient is not local and would need to drive 11 hours to return home, she was amenable to being admitted for pain control Multimodal pain regimen as follows: Acetaminophen as needed for pain 13 Oxycodone 5-10 mg p.o. q6h as needed for breakthrough pain Prednisone 40 mg p.o. QAM Methocarbamol 750 mg p.o. TID Lidocaine 5% patch application/removal to the lower back daily Ice application to lower back (patient reports this has been helping a lot) Reclined position/limit movement Orthospine surgery consulted, pain management consulted epidural injection tomorrow , after discharge (2) Constipation: Plan: Secondary to opioid use MiraLAX as needed (3) Hypothyroidism: Plan: Continue levothyroxine (4) Depression: Plan: Continue duloxetine Plan Disposition: Admit to [facility] Full code Regular diet VTE PPx: Lovenox 40 mg SQ q24h Admission and Anticipated Discharge Date Admission Date: December 27, 2023 Subjective reports back pain improvement Review of Systems Review of Systems: See HPI above Physical Exam Physical Exam: General: Moderate physical distress secondary to LBP; pleasant affect; non-toxic appearing; cooperative HEENT: normocephalic, atraumatic; no scleral icterus; PERRLA; moist mucus membrane; vision and hearing grossly intact Neck: supple; no lymphadenopathy; trachea midline Skin: warm, dry without signs of tenting; no cyanosis; no rashes, bruising, lesions, or erythema noted CV: chest wall NTP; RRR; S1/S2 normal; no murmurs/rubs/gallops; pulses intact and symmetric at radial, DP, and PT Lungs: no acute respiratory distress; symmetrical chest wall expansion; clear breath sounds across all lung key w/o adventitious sounds; no wheezing ABD: Soft, NTP; BS present; no rebound/guarding Back: No signs of bruising, rashes or active bleeding on the back Neuro: A&Ox3; normal mood and affect; Results & Data Results & Data Vital Signs (Past 12 Hours) Vital Signs Temp Pulse Resp BP Pulse Ox O2 Del Method 12/29/23 16:49 37.1 C 73 16 133/80 93 Room Air 12/29/23 07:34 36.7 C 69 16 113/75 97 Room Air 12/29/23 07:30 Room Air PG Care Time/CCT Total # of Minutes Spent Total Time Spent with Patient: Total time spent is greater than 50% in coordination of care (as documented) at patient's floor/unit and/or counseling patient: Coding Level of Care Code 10116 SUB INP/OBS CARE 2/35MIN Diagnoses Lumbar radiculopathy M54.16 Constipation K59.00 Hypothyroidism E03.9 Depression F32.A
[2023-12-30 06:29] LABS: Basophils # (auto) 0.06 K/uL (0.00-0.20); Basophils % (auto) 0.8 %; Hematocrit (blood only) 35.8 % (37.0-47.0); Hemoglobin 11.3 g/dl (12.0-16.0); Immature Granulocytes # (auto) 0.04 K/uL (0.01-0.20); Immature Granulocytes % (auto) 0.5 %; Lymphocytes # (auto) 2.81 K/uL (1.20-3.40); Lymphocytes % (auto) 37.4 %; Mean Corpuscular Hemoglobin 29.3 pg (25.0-34.0); Mean Corpuscular Hgb Conc 31.6 g/dL (32.0-36.0); Mean Corpuscular Volume 92.7 fL (80.0-100.0); Mean Platelet Volume 9.7 fL (9.4-12.4); Monocytes # (auto) 0.78 K/uL (0.11-0.59); Monocytes % (auto) 10.4 %; Neutrophils # (auto) 3.82 K/uL (1.40-6.50); Neutrophils % (auto) 50.9 %; Platelet Count 271 K/uL (130-400); RDW Coefficient of Variation 13.9 % (11.5-14.5); RDW Standard Deviation 47.5 fL (36.4-46.3); Red Blood Count 3.86 M/uL (4.20-5.40); White Blood Count 7.51 K/ul (4.8-10.8)
[2023-12-30 07:02] LABS: BUN Creatinine Ratio 21.6 (10-20); Calcium 8.4 mg/dl (8.6-10.3); Est GFR (African American) 105.7 ml/min; Est GFR (Non-African American) 91.2 ml/min; Potassium 4.4 mmol/L (3.5-5.1)
--- NOTE | 2023-12-30 11:43 | Anesthesiology Consultation ---
Date of Service December 30, 2023 Assessment & Plan Chart Review Chart Review: Acceptable Risk for Surgery and Patient NOT seen in Pre Admission Testing Consults Requested none ASA ASA2 Proposed Anesthesia Anesthesia Type: MAC History Surgery Operation Date: 12/30/23 12:30 Proposed Procedures p Left L5-S1 Transforaminal Epidural Steroid Injection - Ingrid Patterson DO Height/Weight Height: 5 ft 8 in Weight: 79.379 kg Allergies Allergy/AdvReac Type Severity Reaction Status Date / Time adhesive tape Allergy Redness of Verified 12/27/23 23:24 Skin Medications Home Medications Medication Instructions Recorded Confirmed Last Taken naproxen 500 mg tablet 500 mg PO BID PRN pain #20 tabs 12/25/23 12/27/23 Unknown duloxetine 60 mg capsule,delayed 60 mg PO DAILY 12/27/23 12/27/23 Unknown release levothyroxine 75 mcg tablet 75 mcg PO DAILYBB 12/27/23 12/27/23 Unknown methocarbamol 750 mg tablet 750 mg PO TID 12/27/23 12/27/23 Unknown lidocaine 5 % topical patch 1 patch transdermal QAM #10 ea 12/29/23 Unknown oxycodone 5 mg capsule 5 mg PO DAILY PRN pain #20 caps 12/29/23 Unknown oxycodone 5 mg tablet 5 mg PO Q6H PRN pain 5 days #20 12/29/23 Unknown tabs prednisone 20 mg tablet 40 mg (2 x 20 mg) PO QAM #10 tabs 12/29/23 Unknown Active Medications Generic Name Dose Route Start Last Admin Trade Name Freq PRN Reason Stop Dose Admin Acetaminophen 1,000 mg 12/28/23 03:00 12/30/23 11:27 Acetaminophen 500 Mg Tab PO 01/27/24 02:59 1,000 mg Q8H APRIL Administration Duloxetine HCl 60 mg 12/28/23 09:00 12/30/23 08:22 Duloxetine Hcl 60 Mg Cap PO 01/27/24 08:59 60 mg DAILY APRIL Administration Hydromorphone HCl 0.5 mg 12/27/23 23:23 12/28/23 15:34 Hydromorphone Inj 0.5 Mg/0.5 Ml Syr IV 01/10/24 23:22 0.5 mg Q6H PRN Administration Pain Prochlorperazine 10 mg/ 10 mls @ 5 mls/min 12/28/23 18:32 12/28/23 18:45 Syringe IV 01/27/24 18:31 5 mls/min Q6H PRN Administration Nausea And Vomiting - 2nd line Levothyroxine Sodium 75 mcg 12/28/23 06:30 12/30/23 06:04 Levothyroxine Sodium 75 Mcg Tablet PO 01/27/24 06:29 75 mcg DAILYBB APRIL Administration Lidocaine 1 patch 12/28/23 09:00 12/30/23 08:22 Lidocaine 5% 1 Patch TD 01/27/24 08:59 1 patch QAM APRIL Administration Melatonin 3 mg 12/27/23 22:41 12/29/23 21:22 Melatonin 3 Mg Tab PO 01/26/24 22:40 3 mg HS PRN Administration Insomnia Methocarbamol 750 mg 12/27/23 22:41 12/30/23 08:22 Methocarbamol 750 Mg Tablet PO 01/26/24 22:40 750 mg TID APRIL Administration Miscellaneous 1 each 12/27/23 22:41 12/29/23 21:13 Remove Lidoderm Patch N/A 01/26/24 22:40 1 each DAILY@2100 APRIL Administration Ondansetron HCl 4 mg 12/28/23 12:59 12/28/23 13:08 Ondansetron Inj 2 Mg/Ml 2 Ml Vial IV 01/27/24 12:58 4 mg Q6H PRN Administration Nausea - 1st line Oxycodone HCl 10 mg 12/27/23 23:25 12/30/23 06:08 Oxycodone Hcl Ir 5 Mg Tab (Immediate Release) PO 01/10/24 22:40 10 mg Q6H PRN Administration pain 6+ Polyethylene Glycol 17 gm 12/27/23 22:41 12/29/23 21:22 Polyethylene (Miralax) 17 Gm Pack PO 01/26/24 22:40 17 gm DAILY PRN Administration Constipation Prednisone 40 mg 12/28/23 09:00 12/30/23 08:22 Prednisone 20 Mg Tab PO 01/27/24 08:59 40 mg QAM APRIL Administration Past Medical History Medical History Depression Hypothyroidism Exercise / Class Metabolic Activity II 4-5 Yardwork/Stairs/Walk up hill Past Anesthesia History No Hx of Anesthesia Complications and No Family Hx of Anesthesia Complications History of PONV No Hx of PONV and No Hx of Motion Sickness Social History Smoking Status: Never smoker Hx Alcohol Use: Yes Alcohol type: wine alcohol intake frequency: holidays/special occasions only Hx Substance Use: No Physical Exam Vital Signs Last Vital Signs Temp 36.9 C 12/30/23 07:35 Pulse 66 12/30/23 07:35 Resp 16 12/30/23 07:35 BP 124/75 12/30/23 07:35 Pulse Ox 96 12/30/23 07:35 O2 Del Method Room Air 12/30/23 07:35 Testing Laboratory Results 12/30/23 05:49 12/30/23 05:49 Electrocardiogram Date: 12/27/23 Findings: + ST @ (@ 122;NS T wave abnormality)
[2023-12-30] MEDS ORDERED: PROMETHAZINE HCL 6.25 MG in SODIUM CHLORIDE 0.9% 50 ML IV PRN (11:53)
[2023-12-30] MEDS ORDERED: ATROPINE SULFATE 0.1 MG/ML 10ML SYR IV PRN (11:53)
[2023-12-30] MEDS ORDERED: FLUMAZENIL 0.1 MG/1 ML 10 ML VIAL IV PRN (11:53)
[2023-12-30] MEDS ORDERED: ePHEDrine sulfate 50 MG/ML AMP IV PRN (11:53)
[2023-12-30] MEDS ORDERED: ONDANSETRON INJ 2 MG/ML 2 ML VIAL IV PRN (11:53)
[2023-12-30] MEDS ORDERED: LABETALOL HCL IV 5 MG/ML 20ML IV PRN (11:53)
[2023-12-30] MEDS ORDERED: NALOXONE HCL 0.4 MG/1 ML VIAL/CARP IV PRN (11:53)
[2023-12-30] MEDS: LACTATED RINGER'S 1,000 ML IV SCH (11:54)
--- NOTE | 2023-12-30 12:14 | History & Physical Bridge Note ---
Date of Service December 30, 2023 History & Physical Bridge Note I have examined the patient, reviewed the History & Physical and in the interval since the performance of the History & Physical I have noted the following changes of clinical significance: no changes noted
[2023-12-30] MEDS ORDERED: MIDAZOLAM HCL 1 MG/ML 2ML VIAL ONE (12:27)
[2023-12-30] MEDS: methylPREDNISolone acetate 80 MG/ML VIAL IM ONE (12:38)
[2023-12-30] MEDS: IOPAMIDOL INJ 61% 15 ML VIAL INSTIL ONE (12:39)
--- NOTE | 2023-12-30 12:50 | Operative Report ---
Post Operative Report Pre & Post Diagnosis Operation Date: 12/30/23 12:30 <No data on this case meets the specified criteria> Lumbar disc herniation with lumbar radiculopathy I identified the patient and participated in the time-out.: Yes Procedure Operation Date: 12/30/23 12:30 <No data on this case meets the specified criteria> Left L5-S1 transforaminal epidural steroid injection Surgeon Ingrid Patterson, DO Director Of Health Care Marketing None Estimated Blood Loss 0 Findings Consistent with Post-Op Diagnosis Fluids Per anesthetic record Specimens None Drains None Anesthesia Type MAC Complications none Disposition Accompanied Patient To Recovery: No Disposition: Recovery Room Description of Procedure TRANSFORAMINAL EPIDURAL STEROID INJECTION (DIAGNOSTIC) Diagnosis: Lumbar Radiculitis and Herniated Disc Level injected: Left L5-S1 Surgeon: Dr. Ingrid Patterson Anesthesia: local Material forwarded to lab: none Complications: none Medications used in total: 2% lidocaine 5ml Depomedrol 1ml (40mg/ml) Isovue 300 3ml Prior to starting, the Patients diagnosis, allergies, medication list, and the procedure were reviewed with the patient in detail. Potential risks including infection, bleeding, nerve injury, reaction to any one of the medications used for the procedure, persistent pain at the injection site and persistent symptoms discussed with the patient. Diagnostic and therapeutic nature of the procedure also discussed with the patient. Alternatives to the specific procedure was also discussed with the patient. Patient's questions were answered. Patient gives informed consent to proceed. The patient was brought to the fluoroscopy room and placed in prone position on the table. Immediately prior to starting the procedure, a time out was conducted with the staff and the patient where the patient was identified, proposed procedure was verified, consent was reviewed and the proper site for the planned procedure was identified. Fluoroscopy was utilized in performing the procedure to assist the placement of the needle, to evaluate the final position of the needle prior to injection and to avoid intravascular injection. Monitors used included intermittent blood pressure with automated device, continuous pulse oximetry and level of consciousness. Patient was not given any intravenous sedation and constant verbal contact was maintained throughout the procedure. Lumbar-sacral area was prepped with duraprep and betadine solution. After the application, three minutes time elapsed prior to the start of the procedure to reduce risk of fire. Sterile drapes were applied. The appropriate interspace and disk was identified in a true AP view. The fluoroscope was then rotated to obtain a decubitus view in such a manner so that the superior articular process of the inferior vertebra was bisecting the pars inter-articularis of the vertebra above in two or in the 6 oclock position. Next, 4 mL of 2% lidocaine preservative-free was injected for local skin anesthesia. Then, a 22 Gauge 3.5 inch curved (15 degrees) spinal needle was inserted through the skin and subcutaneous tissues and advanced in a co-axial technique. Needle tip was first placed on the infero-lateral margin of the pars inter-articularis. Once the bony margin was contacted, the C-arm was rotated to obtain a lateral view. The needle was slowly "walked off" the bone and advanced toward the anterior and superior aspect of the foramen. Patient did not experience any pain or paresthesia. A six inch micro bore tubing was attached to the needle and aspiration did not demonstrate CSF or blood. Nonionic Isovue contrast 1ml was injected via the needle under live fluoroscopy. Spread of the contrast along the nerve root. AP view was checked to ensure the needle tip was in the close proximity to the nerve root an in the proximal neural foramen lateral to the inferior articular process and in the 6 oclock position. Additional 2ml of the contrast was injected under live fluoroscopy. Neither subdural or subarachnoid spread nor intravascular uptake was noted on plain fluoroscopy. Next 80mg depomedrol was injected followed by 2% lidocaine-MPF 1ml to flush the needle. The patient did not experience pain during the injection. Adequate hemostasis was noted. A sterile Band-Aid was applied to the injection site. Patient was monitored for 30 minutes and discharged with an accompanying adult. Discharge instructions were reviewed with the patient/caregiver. Any specific questions were answered. Patient/caregiver voiced understanding of the instruc tions. Follow-up appointment has been scheduled. I attest to the content of the Intraoperative Record and any orders documented therein. Any exceptions are noted below.
--- NOTE | 2023-12-30 12:57 | Anesthesiology Progress Note ---
Date of Service December 30, 2023 Anesthesia Post Procedure Vital Signs Vital Signs: Temp Pulse Pulse Resp BP Pulse Ox O2 Del Method 12/30/23 11:42 36.8 C 68 16 155/89 H 98 Room Air 12/30/23 07:35 36.9 C 66 16 124/75 96 Room Air 12/29/23 19:54 37 C 68 16 126/74 95 Room Air 12/29/23 16:49 37.1 C 73 16 133/80 93 Room Air Pain Intensity Left Back: Pain Intensity: 5 Transfer of Care Handoff Completed per policy Notes Mental Status: alert / awake / arousable Patient Amnestic to Procedure: Yes Nausea / Vomiting: adequately controlled Pain: adequately controlled Airway Patency, RR, SpO2: stable & adequate BP & HR: stable & adequate Hydration State: stable & adequate Anesthetic Complications: no major complications apparent
[2023-12-30] MEDS: fentaNYL citrate PF 100 MCG/2 ML VIAL IV PRN (13:02)
--- NOTE | 2023-12-30 13:45 | Discharge Summary ---
Date of Service December 30, 2023 Admission HPI Per Admitting Provider Marilee is a pleasant 53-year-old female with PMH of hypothyroidism, depression, and lumbar radiculopathy. Patient presented for worsening, intractable left hip pain radiating down the left leg that began after she was lifting boxes and helping a friend move on December 16. Pain is located at the left lower back/sacrum and radiates down her left leg. She rates it 8/10 after receiving pain medication in the ED. worse with movements. She was seen at the ED on 12/24, and was previously discharged on methocarbamol 750 mg 3 times daily as well as naproxen/Tylenol rotation. She reports that this did not alleviate her pain, and that her pain has been constant since. She does note that ice pads do help with the pain, as well as lying in a reclined position. Last BM on 12/26 at 1330. No saddle anesthesia or change in bowel/urinary habits. Patient reports she has been slightly constipated from pain medication. Prior injuries to the back include a recent fall around a month ago while wearing flip-flops; tripped. She also notes she had a deep tissue massage of the lower back around Margarita time and is unsure if this contributed. Patient lives in [place], [place], but is currently in the area caring for her 87-year-old mother with CHF. She reports she has not been taking her regular medications, which include duloxetine and levothyroxine. Patient is mildly hypertensive at 141/91 at time of admission; vitals otherwise stable. ED course: Lidocaine 5% patch Acetaminophen 1000 mg IV Cyclobenzaprine 10 mg Toradol 15mg Dexamethasone 10 mg Oxycodone 5 mg p.o. x 2 ROS: Patient endorses left lower back pain radiating fully down the left leg, numbness and tingling in the left leg, and constipation. Patient denies fever, chills, night sweats, dizziness or lightheadedness, headaches, chest pain, SOB, abdominal pain, N/V/D, change in bowel habits, blood in her urine or stool, burning with urination, or saddle anesthesia. Principal Diagnosis back pain Discharge Exam General: Moderate physical distress secondary to LBP; pleasant affect; non-toxic appearing; cooperative HEENT: normocephalic, atraumatic; no scleral icterus; PERRLA; moist mucus membrane; vision and hearing grossly intact Neck: supple; no lymphadenopathy; trachea midline Skin: warm, dry without signs of tenting; no cyanosis; no rashes, bruising, lesions, or erythema noted CV: chest wall NTP; RRR; S1/S2 normal; no murmurs/rubs/gallops; pulses intact and symmetric at radial, DP, and PT Lungs: no acute respiratory distress; symmetrical chest wall expansion; clear breath sounds across all lung key w/o adventitious sounds; no wheezing ABD: Soft, NTP; BS present; no rebound/guarding Back: No signs of bruising, rashes or active bleeding on the back Neuro: A&Ox3; normal mood and affect; Discharge Data Allergies Allergy/AdvReac Type Severity Reaction Status Date / Time adhesive tape Allergy Redness of Verified 12/27/23 23:24 Skin Consultations 12/27/23 20:13 ED Decision to Admit Stat 12/27/23 20:22 Consult Orthopedic Spine Surgery Routine 12/28/23 09:37 Consult Pain Management Routine 12/28/23 15:45 Burn CD for patient Stat Procedures Performed Operation Date: 12/30/23 12:30 Actual Procedures p Left L5-S1 Transforaminal Epidural Steroid Injection(Left) - Ingrid Patterson DO Ordered Studies 12/27/23 15:49 MRI Lumbar Spine [MR lumbar spine wo/w con] Stat 12/30/23 [place] fluoro for pain procedure Routine Hospital Course (1) Lumbar radiculopathy: Worsening, intractable LBP with pain radiation down her left leg x 2 weeks Patient reports she was helping a friend move/lift boxes when she exacerbated her back pain Lumbar spine MRI on arrival revealed a 13 x 5 mm left foraminal focal disc protrusion at L5-S1; no fracture or subluxation ED reach out to Dr. Almaguer, who reported that the patient will likely need a back injection Given the patient is not local and would need to drive 11 hours to return home, she was amenable to being admitted for pain control Multimodal pain regimen as follows: Acetaminophen as needed for pain 13 Oxycodone 5-10 mg p.o. q6h as needed for breakthrough pain Prednisone 40 mg p.o. QAM Methocarbamol 750 mg p.o. TID Lidocaine 5% patch application/removal to the lower back daily Ice application to lower back (patient reports this has been helping a lot) Reclined position/limit movement epidural injection was done, patient reports her pain was improving with oxycodone, steroids, she is able to ambulate, stable for discharge (2) Constipation: Secondary to opioid use MiraLAX as needed (3) Hypothyroidism: Continue levothyroxine (4) Depression: Continue duloxetine Plan Disposition: Admit to [facility] Full code Regular diet VTE PPx: Lovenox 40 mg SQ q24h Total Time Total Time Spent Total Time Spent (In Minutes): 35 Discharge Plan Discharge Items Patient Disposition: Home - Self-Care Reason For Visit: INTRACTABLE BACK PAIN Discharge Diagnosis: back pain Activity: Resume your previous activity Lifting: None Non-emergency contact: Primary Care Provider Call non-emergency contact if: your symptoms worsen and your pain is worsening Follow-up/Referrals: Kerline Calderon MD [Primary Care Provider] - Diet: Regular Addtl Attending Provider Instructions: follow up with your PCP in 7 days Pending Studies at Discharge: No Stand-Alone Forms: My [facility] [employer], Smoking Cessation Medications and DC Order Prescriptions: New prednisone 20 mg Tablet 40 mg PO QAM Qty: 10 0RF lidocaine 5 % Adhesive Patch,Medicated 1 patch transdermal QAM Qty: 10 0RF oxycodone 5 mg Tablet 5 mg PO Q6H PRN (Reason: pain) 5 Days Qty: 20 0RF oxycodone 5 mg capsule 5 mg PO DAILY PRN (Reason: pain) Qty: 20 0RF oxycodone 5 mg capsule 5 mg PO DAILY PRN (Reason: pain) 5 Days Qty: 20 0RF Continued naproxen 500 mg tablet 500 mg PO BID PRN (Reason: pain) Qty: 20 0RF levothyroxine 75 mcg tablet 75 mcg PO DAILYBB methocarbamol 750 mg tablet 750 mg PO TID Rx Instructions: ordered 12/22/23 take for 7 days duloxetine 60 mg capsule,delayed release(DR/EC) 60 mg PO DAILY Discharge Orders: Discharge Order (Routine); Ordered 12/30/23 Ordered By: Melba Patino Admission Data Admit Date/Time: 12/27/23 20:49 Attending Provider: Melba Patino Admit Provider: Fercho Partida Primary Care Provider: Calderon,Kerline Other Providers: Dylon Almaguer; Joanne Aceves; Gigi Gee; Ingrid Patterson; Ashvin Arana; Opal Robles; Juan Johnson. Coding Level of Care Code 82392 IN/OBS DISCH 30 MIN/LESS Diagnoses Lumbar radiculopathy M54.16 Constipation K59.00 Hypothyroidism E03.9 Depression F32.A Time Spent (min) 35
[2023-12-30] MEDS ORDERED: NAPROXEN 250 MG TAB PO PRN (13:51)
[2023-12-30] MEDS: TRIAMCINOLONE ACET 40 MG/ML VIAL ONE (14:00)
[2023-12-30] MEDS: LIDOCAINE 2% 2 ML VIAL/AMP(20MG/ML) INFIL ONE (14:00)
[2023-12-30] MEDS: PANTOprazole 40 MG TAB PO SCH (14:00)
[2023-12-30] MEDS: ROPIVACAINE 0.5% 5 MG/ML 30 ML VIAL ONE (14:00)
[2023-12-30] MEDS: LIDOCAINE 1% LOCAL 20 ML VIAL ONE (14:00)
[2023-12-30] MEDS: PANTOprazole 40 MG TAB PO ONE (16:10)
== END 2023-12-30 17:29 | disposition home or self-care (01) ==
LOC: ED 14:12 → INTOOBSV 20:49 → SUATTDRO 20:49 → 3E 20:49